=== PATIENT | female | born 1935 | race Caucasian/White ===

== ENCOUNTER 2017-05-27 05:55 | Day surgery (SDC) | payer MEDICARE, OTHER ==
[~2017-05-27 05:55] MED LIST: Buffered Lidocaine 0.9% SYRIN* 5 ML/SYR SYRINGE INTRADERM ONE
[2017-05-27] MEDS ORDERED: Dexamethasone IV* 4 MG/ML 1 ML (4 MG) IV SLOW PU ONE (06:00)
[2017-05-27] MEDS ORDERED: Famotidine TAB* 20 MG PO ONE (06:00)
[2017-05-27] MEDS ORDERED: ceFAZolin 2 GM PREMIX (*) 2 GM/50 ML BAG IVPB ONE (06:11)
[2017-05-27] MEDS ORDERED: Dexamethasone IV* 4 MG/ML 1 ML (4 MG) ONE (06:11)
[2017-05-27] MEDS ORDERED: Famotidine TAB* 20 MG ONE (06:11)
[2017-05-27] MEDS ORDERED: Buffered Lidocaine 0.9% SYRIN* 5 ML/SYR SYRINGE ONE (06:11)
[2017-05-27] MEDS ORDERED: Midazolam* 1 MG/ML 5 ML VIAL (5 MG) ONE (07:08)
[2017-05-27] MEDS ORDERED: fentaNYL* 50 MCG/ML 2 ML VIAL (100 MCG VIAL) ONE (07:08)
[2017-05-27] MEDS ORDERED: Propofol* 10 MG/ML 20 ML BTL IV PUSH ONE (07:08)
[2017-05-27] MEDS ORDERED: Ondansetron INJ* 2 MG/ML VIAL ONE (07:08)
[2017-05-27] MEDS ORDERED: Bupivacaine 0.25% SDV* 30 ML ONE (07:31)
[2017-05-27] MEDS ORDERED: Naloxone* 0.4 MG/ML 1 ML VIAL IV PRN (08:02)
--- NOTE | 2017-05-27 08:12 | OP ---
Operative Report - Blank - Operative Report Date of Operation: 05/27/17 Note: PATIENT: Josefina Kat DATE OF : 1935 DATE OF SURGERY: 05/27/2017 SURGEON: Karlo Dobson MD PROBATE CLERK: VANIA Benz, whos assistance was necessary for positioning, retraction, help with instrumentation, and closure. ANESTHESIOLOGIST: Dr. 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 SPECIMENS: Toe to pathology ESTIMATED BLOOD LOSS: minimal COMPLICATIONS: none STATUS: Stable from the operating room to the recovery room and then home. 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 Both operative and non operative treatment alternatives were reviewed. Further, the nature and risks of surgery were reviewed in careful detail. Our discussions regarding the risks of surgery included, but were not limited to, infection, wound problems, nerve injury, neuroma, RSD, persistent symptoms, blood clot, failure of the surgery, need for further amputation or surgery, and even the remote chance of catastrophic complication, including loss of limb. DESCRIPTION OF PROCEDURE: The patient was seen in the preoperative holding unit and informed written consent was obtained. The appropriate extremity was marked. The patient was then brought to the operating room and carefully positioned on the operating room table. Anesthesia was induced. All bony prominences were padded with great care. A chlorhexidine based pre-scrub was performed followed by a chloraprep prep and drape in standard sterile fashion. A surgical safety pause was then conducted in which we confirmed the appropriate patient, extremity, planned procedure, availability of equipment, indication and administration of prophylactic antibiotics, and DVT prophylaxis in the form of a compression boot on the non-surgical extremity. I began with an exsanguination and application of an ankle Esmarch tourniquet. I then made an incision to remove the distal aspect of the toe. I maintained enough soft-tissue length for closure. The phalanges were dissected out and the toe was amputated at the level of the MTP joint. The toe was then sent to pathology. We then irrigated copiously after removing the ankle Esmarch tourniquet. The skin edges were pink. We closed with 3-0 monocryl and then 3-0 nylon and then placed a sterile dressing. The patient was then awakened from anesthesia and transferred to the recovery room in stable condition. There were no complications. All needle and sponge counts were correct at the end of the case. ATTESTATION: I attest I was present and scrubbed and performed the critical portions of the procedure myself. POSTOPERATIVE PLAN: The patient may be heel weight-bearing in a post-operative shoe and will follow up will be in two weeks for a wound check.
[2017-05-27 09:19] VITALS: BP 105/59
== END 2017-05-27 09:20 | disposition home or self-care (01) ==
LOC: OR 05:55
PROVIDERS: ATTEND Orthopaedic Surgery
DX: M20.42 Other hammer toe(s) (acquired), left foot (principal); M20.5X2 Other deformities of toe(s) (acquired), left foot; I10 Essential (primary) hypertension; I08.3 Combined rheumatic disorders of mitral, aortic and tricuspid valves; I27.20 Pulmonary hypertension, unspecified; E03.9 Hypothyroidism, unspecified; Z87.891 Personal history of nicotine dependence
CPT/HCPCS: A9270-GY; J0690; J1100; J2250; J2405; J2704; J3010

== ENCOUNTER 2020-06-06 18:19 | Inpatient (IN) ==
[2020-06-06] MEDS ORDERED: Dexamethasone IV 4 MG/ML VIAL 1 ml VIAL IV SLOW PU ONE (19:39)
[2020-06-06] MEDS ORDERED: Immune Glob 10%-20GM PRIVIGEN 20 GM, Immune Glob 10%-10GM PRIVIGEN 10 GM in Premix IV 0 ML IV ONE (19:40)
[2020-06-06 19:51] LABS: Immature Retic Fraction 0.45; RBC Retic Count 4.62 10^6/uL (3.70-4.87); Red Blood Count 4.62 10^6 /uL (3.70-4.87)
[2020-06-06 19:56] LABS: ABS Eosinophils 0.1 10^3/ul (0-0.6); ABS Lymphocytes 0.9 10^3/ul (1.0-4.8); ABS Monocytes 0.6 10^3/ul (0-0.8); ABS Neutrophils 5.1 10^3/ul (1.5-7.7); Corrected Retic Count 0.8 % (0.5-1.5); Eosinophil % 0.8 %; Hematocrit 40 % (35-47); Hematocrit for Retic CNT 40 % (35-47); Hemoglobin 13.7 g/dL (12.0-16.0); Lymphocyte % 13.5 %; Mean Corpuscular HGB Conc 34 g/dL (31-36); Mean Corpuscular Hemoglobin 30 pg (27-31); Mean Corpuscular Volume 87 fL (80-97); Mean Platelet Volume 10.8 fL (7.4-10.4); Platelet Count 10 10^3/uL (150-450); Red Cell Distribution Width 13 % (10-15); White Blood Count 6.8 10^3/uL (3.5-10.8)
[2020-06-06] MEDS ORDERED: [UNRECOGNIZED DRUG - OTHER] IV ONE (21:00)
[2020-06-06] MEDS ORDERED: IMMUNE GLOB IV ONE (21:00)
[2020-06-06] MEDS ORDERED: GAMUNEX C IV ONE (21:00)
[2020-06-07 06:58] LABS: ABS Lymphocytes 0.4 10^3/ul (1.0-4.8); ABS Neutrophils 3.5 10^3/ul (1.5-7.7); Hematocrit 38 % (35-47); Hemoglobin 13.2 g/dL (12.0-16.0); Lymphocyte % 9.4 %; Mean Corpuscular HGB Conc 35 g/dL (31-36); Mean Corpuscular Hemoglobin 30 pg (27-31); Mean Corpuscular Volume 87 fL (80-97); Mean Platelet Volume 11.3 fL (7.4-10.4); Nucleated Red Blood Cells % 0.1; Platelet Count 13 10^3/uL (150-450); Red Blood Count 4.37 10^6 /uL (3.70-4.87); Red Cell Distribution Width 13 % (10-15); White Blood Count 3.9 10^3/uL (3.5-10.8)
[2020-06-07] MEDS: Dexamethasone IV 4 MG/ML 5 ML VIAL (20 MG) SCH (08:20)
[2020-06-07 08:27] LABS: Calcium 8.9 mg/dL (8.6-10.3); EGFR African American 71.8 (>60); EGFR Non-African American 59.4 (>60); Magnesium 1.8 mg/dL (1.9-2.7); Potassium 4.3 mmol/L (3.5-5.0)
[2020-06-07] MEDS ORDERED: Magnesium Sulfate 2 gm BAG 2 GM/50 ML BAG IVPB ONE (09:16)
[2020-06-07 17:03] LABS: ABS Lymphocytes 0.4 10^3/ul (1.0-4.8); ABS Monocytes 0.1 10^3/ul (0-0.8); Hematocrit 40 % (35-47); Hemoglobin 13.5 g/dL (12.0-16.0); Lymphocyte % 4.5 %; Mean Corpuscular HGB Conc 34 g/dL (31-36); Mean Corpuscular Hemoglobin 30 pg (27-31); Mean Corpuscular Volume 88 fL (80-97); Mean Platelet Volume 11.9 fL (7.4-10.4); Platelet Count 43 10^3/uL (150-450); Red Blood Count 4.51 10^6 /uL (3.70-4.87); Red Cell Distribution Width 13 % (10-15); White Blood Count 8.4 10^3/uL (3.5-10.8)
[2020-06-07] MEDS ORDERED: IMMUNE GLOB IV SCH (21:00)
[2020-06-07] MEDS ORDERED: [UNRECOGNIZED DRUG - OTHER] IV SCH (21:00)
[2020-06-07] MEDS ORDERED: GAMUNEX C IV SCH (21:00)
[2020-06-08 05:25] LABS: Hematocrit 36 % (35-47); Hemoglobin 12.1 g/dL (12.0-16.0); Mean Corpuscular HGB Conc 34 g/dL (31-36); Mean Corpuscular Hemoglobin 30 pg (27-31); Mean Corpuscular Volume 88 fL (80-97); Platelet Count 58 10^3/uL (150-450); Red Blood Count 4.05 10^6 /uL (3.70-4.87); Red Cell Distribution Width 14 % (10-15); White Blood Count 10.1 10^3/uL (3.5-10.8)
[2020-06-08] MEDS: Dexamethasone IV 4 MG/ML 5 ML VIAL (20 MG) SCH (08:13)
[2020-06-08 09:56] VITALS: BP 95/57
[2020-06-08 16:22] LABS: HIV 4th Generation Nonreactive (Nonreactive)
[2020-06-08 16:24] LABS: Hepatitis C Antibody Negative (Negative)
[2020-06-09 15:00] LABS: HIT ELISA 0.083 OD (<0.400)
== END 2020-06-08 11:10 | disposition home or self-care (01) | DRG 813 ==
LOC: ED 18:19 → MED 21:37
PROVIDERS: ADMIT Internal Medicine; ATTEND Pediatrics